=== PATIENT | male | born 1985 | race African-American/Black ===

== ENCOUNTER → 2019-10-22 | Outpatient (CLI) | payer MEDICAID, SELFPAY ==
[2019-10-22 12:51] VITALS: BMI 46.0
[2019-10-22 14:11] LABS: Absolute Lymphocyte Count 2.57 X10^3/uL (0.83-4.51); Absolute Neutrophil Count 5.5 X10^3/uL (2.0-7.7); Basophil# 0.04 X10^3/uL; Basophil% 0.4 % (0-1); Eosinophil# 0.19 X10^3/uL; Hematocrit 44.1 % (40-54); Hemoglobin 14.5 g/dL (13.0-16.5); Lymphocyte # 2.57 X10^3/ul (4.0); Lymphocyte % 27.2 % (19-41); Mean Corp Hgb Conc 32.9 g/dL (32-36); Mean Corpuscular Hgb 29.5 pg (27.0-32.0); Mean Corpuscular Volume 89.6 fL (80-94); Mean Platelet Vol. 10.7 fl (6.2-12.0); Monocyte# 1.14 X10^3/uL; Monocyte% 12.1 % (0-10); NRBC Flagged by Analyzer 0 % (0-5); Neutrophil # 5.49 X10^3/uL (2.7-7.7); Neutrophil % 58.1 % (47-70); Platelet Count 314 K/mm3 (150-450); RBC Distribution Width CV 13.3 % (11.6-14.6); RBC Distribution Width SD 43.5 fl (35.1-43.9); Red Blood Count 4.92 M/mm3 (4.6-6.2); White Blood Count 9.5 K/mm3 (4.4-11.0)
[2019-10-22 14:21] LABS: ALB/GLOB Ratio 1.2 RATIO (0.9-2.4); AST(SGOT) 19 U/L (15-37); Alanine Aminotransfer ALT/SGPT 42 U/L (16-61); Alkaline Phosphatase 76 U/L (45-117); Anion Gap 4 (5-15); BUN 12 mg/dL (7-18); BUN/Creat Ratio 12.6 RATIO (10-20); Chloride 111 mmol/L (98-107); Cholesterol 167 mg/dL (200); Creatinine, Serum 0.96 mg/dL (0.70-1.30); EST Glomerular Filtration Rate 96 mL/min (>60); Est Glom Filt Rate - Afr Amer 116 mL/min (>60); Globulin 3.4 g/dL (2.2-4.2); Glucose 105 mg/dL (74-106); High Density Lipoprotein 35 mg/dL; Potassium 4.2 mmol/L (3.5-5.1); Protein, Total 7.4 g/dL (6.4-8.2); Sodium Level 142 mmol/L (136-145); Triglycerides 238 mg/dL; Very Low Density Lipoprotein 48 mg/dL (5-40)
[2019-10-22 14:38] LABS: Hemoglobin A1c 6.2 % (4.2-6.3)
[2019-10-22 17:57] LABS: Thyroid Stim Hormone (TSH) 5.93 uIU/mL (0.358-3.74)
== END | disposition home or self-care (01) ==
LOC: LABSPEC 14:01
PROVIDERS: PCP Internal Medicine; Referring Provider Internal Medicine; Visit Provider Internal Medicine
DX: E11.9 Type 2 diabetes mellitus without complications (principal); E03.9 Hypothyroidism, unspecified; E78.5 Hyperlipidemia, unspecified
CPT/HCPCS: 80053; 80061; 83036; 84443; 85025

== ENCOUNTER → 2019-12-26 20:39 | Outpatient (CLI) | payer MEDICAID, SELFPAY ==
[2019-11-21 10:45] VITALS: BMI 46.0
== END ==
PROVIDERS: PCP Internal Medicine; Visit Provider Nurse Practitioner Family
DX: G47.10 Hypersomnia, unspecified (principal)
CPT/HCPCS: 95810